=== PATIENT | male | born 1935 | race Caucasian/White ===

== ENCOUNTER 2018-05-08 03:47 | Emergency (ER) | payer MEDICARE, OTHER ==
[2018-05-08 03:56] VITALS: BP 166/61
[2018-05-08] MEDS ORDERED: OXYCODONE HCL IR 5 MG TABLET PO ONE (04:52)
[2018-05-08] MEDS ORDERED: NORMAL SALINE 10 ML SDV (AFTER EACH USE) IV PRN (04:59)
[2018-05-08] MEDS ORDERED: ALTEPLASE INJ 2 MG VIAL (CATH CLEARANCE) IV ONE (05:14)
[2018-05-08] MEDS ORDERED: ALTEPLASE INJ 2 MG VIAL (CATH CLEARANCE) ONE (05:35)
--- NOTE | 2018-05-08 06:26 | ER Document Report ---
ED General - General Chief Complaint: Other Stated Complaint: PICC LINE ISSUE Time Seen by Provider: 05/08/18 06:19 TRAVEL OUTSIDE OF THE U[place]. IN LAST 30 DAYS: No - HPI Notes: [facility] with a clogged [facility] line. Patient receiving outpatient antibiotic therapy. Has no complaints - Related Data Allergies/Adverse Reactions: No Known Allergies Allergy (Unverified 05/08/18 04:52) Past Medical History - Social History Smoking Status: Unknown if Ever Smoked Chew tobacco use (# tins/day): No Frequency of alcohol use: None Drug Abuse: None Family History: None Patient has suicidal ideation: No Patient has homicidal ideation: No Renal/ Medical History: Denies: Hx Peritoneal Dialysis Review of Systems - Review of Systems Notes: REVIEW OF SYSTEMS: CONSTITUTIONAL: -fevers, -chills EENT: -eye pain, -difficulty swallowing, -nasal congestion CARDIOVASCULAR: -chest pain, -syncope. RESPIRATORY: -cough, -SOB GASTROINTESTINAL: -abdominal pain, -nausea, -vomiting, -diarrhea GENITOURINARY: -dysuria, -hematuria MUSCULOSKELETAL: -back pain, -neck pain SKIN: -rash or skin lesions. HEMATOLOGIC: -easy bruising or bleeding. LYMPHATIC: -swollen, enlarged glands. NEUROLOGICAL: -altered mental status or loss of consciousness, -headache, - neurologic symptoms PSYCHIATRIC: -anxiety, -depression. ALL OTHER SYSTEMS REVIEWED AND NEGATIVE. Physical Exam - Vital signs Vitals: Temp Pulse Resp BP Pulse Ox 98.8 F 90 16 166/61 H 95 05/08/18 03:53 05/08/18 03:53 05/08/18 03:53 05/08/18 03:53 05/08/18 03:53 - Notes Notes: PHYSICAL EXAMINATION: GENERAL: Well-appearing, well-nourished and in no acute distress. HEAD: Atraumatic, normocephalic. EYES: Pupils equal round and reactive to light, extraocular movements intact, sclera anicteric, conjunctiva are normal. ENT: nares patent, oropharynx clear without exudates. Moist mucous membranes. NECK: Normal range of motion, supple without lymphadenopathy LUNGS: Breath sounds clear to auscultation bilaterally and equal. No wheezes rales or rhonchi. HEART: Regular rate and rhythm without murmurs ABDOMEN: Soft, nontender, normoactive bowel sounds. No guarding, no rebound. No masses appreciated. EXTREMITIES: Normal range of motion, no pitting or edema. No cyanosis. NEUROLOGICAL: Cranial nerves grossly intact. Normal speech, normal gait. Normal sensory and motor exams. PSYCH: Normal mood, normal affect. SKIN: Warm, Dry, normal turgor, no rashes or lesions noted. Course - Re-evaluation Re-evalutation: 05/08/18 06:25 Elderly male presents with a clogged PICC line. Initial attempts to clear with heparin unsuccessful. Require alteplase. This is given to patient. PICC line and flushes appropriately no complaints Patient has a reassuring physical exam will discharge home. - Vital Signs Vital signs: Temp Pulse Resp BP Pulse Ox 98.8 F 90 16 166/61 H 95 05/08/18 03:53 05/08/18 03:53 05/08/18 03:53 05/08/18 03:53 05/08/18 03:53 Discharge - Discharge Clinical Impression: PICC (peripherally inserted central catheter) flush Condition: Good Disposition: HOME, SELF-CARE Referrals: HANSA FAJARDO MD [Primary Care Provider] - Follow up as needed
[2018-05-08] MEDS ORDERED: NORMAL SALINE 10 ML SDV (SCHEDULED) IV SCH (10:00)
== END 2018-05-08 08:52 | disposition home or self-care (01) ==
LOC: ER 03:47
DX: Z45.2 Encounter for adjustment and management of vascular access device (principal)
CPT/HCPCS: 36592; 99283; J2997; J3490; A9270; J1642

== ENCOUNTER 2018-05-27 05:03 | Emergency (ER) | payer MEDICARE, OTHER ==
[2018-05-27] MEDS ORDERED: FENTANYL CITRATE INJ/PF 100 MCG/2 ML AMPUL IV ONE (05:27)
--- NOTE | 2018-05-27 05:42 | ER Document Report ---
Doctor's Note Notes: 05/27/18 05:40 I performed a quick triage evaluation the patient. Patient is a pleasant 83- year-old male with a complicated history of right hip surgery. Initially had hip surgery replacement done at [facility] in July. After that he developed infection. He had a revision. He also developed a dislocation August. He had 2 more revisions in February and April. Last revision was May 04. He is currently on antibiotics with a PICC line. He also has a wound VAC over the right hip. He says his infection has been well controlled last 1-2 weeks. He has not had any recent fevers. On exam he does have a wound VAC in place over the right hip with just minimal surrounding erythema. Pelvis stable. Good distal pulses in the right foot. Patient does have a knee immobilizer to wear at home but was not wearing it tonight when this occurred. Patient received 75 mcg of fentanyl from the months. He still having some pain and therefore aborted more fentanyl and I have ordered an x-ray. Dictation of this chart was performed using voice recognition software; therefore, there may be some unintended grammatical errors. 05/27/18 05:42
--- NOTE | 2018-05-27 06:21 | ER Document Report ---
ED Hip Pain/Injury - General Chief Complaint: Hip Injury Stated Complaint: HIP PAIN Time Seen by Provider: 05/27/18 06:06 Notes: 83-year-old male presents to the emergency department complaining of right- sided hip pain. 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 The patient has a wound VAC and just had stitches out. Most recent replacement was March 20 at [facility]. Patient state he was doing fine but may have moved his leg wrong while he was in bed to get out of bed and felt a pop. Complains of severe aching pain on the right side of his hip. Worse with movement. Denies any head or neck injuries. Denies chest pain denies abdominal pain. TRAVEL OUTSIDE OF THE [place] IN LAST 30 DAYS: No - HPI Patient complains to provider of: Injury, Hip Occurred: Just prior to arrival Where: Home Onset/Duration: Sudden Quality of pain: Achy Severity: Severe Context: No trauma Symptoms prior to fall: None Symptoms since fall: denies: Dizzy/light-headed, Fever/chills/sweats, Headache, Rapid heart rate, Seizure, Vomiting/diarrhea - Related Data Allergies/Adverse Reactions: No Known Allergies Allergy (Unverified 05/08/18 04:52) Past Medical History - Social History Smoking Status: Former Smoker Chew tobacco use (# tins/day): Yes Frequency of alcohol use: None Drug Abuse: None Family History: None Patient has suicidal ideation: No Patient has homicidal ideation: No - Past Medical History Cardiac Medical History: Reports: Hx Heart Attack, Hx Hypertension Endocrine Medical History: Reports: Hx Diabetes Mellitus Type 2 Renal/ Medical History: Denies: Hx Peritoneal Dialysis Past Surgical History: Reports: Hx Cardiac Catheterization, Hx Cardiac Surgery - bipass, Hx Orthopedic Surgery - R hip Review of Systems - Review of Systems Constitutional: denies: Chills, Fever Cardiovascular: denies: Chest pain, Dizziness Respiratory: denies: Short of breath Musculoskeletal: Joint pain. denies: Muscle pain, Leg swelling, Ankle swelling Skin: denies: Rash -: Yes All other systems reviewed and negative Physical Exam - Vital signs Vitals: Temp Pulse Ox 97.9 F 92 05/27/18 05:23 05/27/18 05:23 - Notes Notes: GENERAL_APPEARANCE: well_nourished, alert, cooperative, appears uncomfortable. VITALS: reviewed, see vital signs table. HEAD: no_swelling\tenderness on the head. EYES: PERRL, EOMI, conjunctiva_clear. NOSE: no_nasal_discharge. MOUTH: (-)decreased moisture. NECK: supple, no_neck_tenderness, (-)thyromegaly. BACK: no_back_tenderness. CHEST_WALL: no_chest_tenderness. LUNGS: no_wheezing, no_rales, no_rhonchi, (-)accessory muscle use, good air exchange bilateral. EXTREMITIES: Shortening of the right hip is noted with rotation inward. There are strong dorsalis pedis posterior tibial pulses. There is a wound VAC in place over incision on the right hip. There is no change in temperature compared to the contralateral leg. No calf pain. No swelling no open wounds. SKIN: warm, dry, good_color, no_rash. MENTAL_STATUS: speech_clear, oriented_X_3, normal_affect, responds_ appropriately to questions. NEURO: Neg Motor or Sensory Deficits on exam, CN 2-12 intact, DTR 2+ symmetric x 4, No cerbellar signs Course - Re-evaluation Re-evalutation: 05/27/18 06:19 Patient arrives with likely hip dislocation will get an x-ray to confirm the patient sees Dr. Waldrop - ortho at [facility]. If the hip is indeed dislocated I will contact [place] since it is still what I consider fresh preop. There is still an open wound some stitches were just removed last week. 05/27/18 09:23 Hip Was reduced. This is not the patient's first hip dislocation is from air and has all the hardware needed I will order a knee immobilizer to get him home. - Vital Signs Vital signs: Temp Pulse Resp BP Pulse Ox 97.9 F 78 14 129/50 H 93 05/27/18 05:25 05/27/18 09:01 05/27/18 09:06 05/27/18 09:06 05/27/18 09:06 - EKG Interpretation by Me EKG shows normal: Sinus rhythm Rate: Normal Rhythm: NSR [place]/QRS: LBBB When compared to previous EKG there are: No significant change Additional EKG results interpreted by me: 05/27/18 07:37 Occasional in and out demand pacing Procedures - Joint Reduction/Fracture Care Right Hip Consent obtained: Yes Conscious sedation: Yes Pre-procedure NV exam: Yes Post-procedure NV exam: Yes - No deficits noted Post-reduction x-ray: Joint reduced Reduction attempts: 1 Complications: No Discharge - Discharge Clinical Impression: Hip dislocation, right Qualifiers: Encounter type: initial encounter Qualified Code(s): S73.004A - Unspecified dislocation of right hip, initial encounter Condition: Good Disposition: HOME, SELF-CARE Instructions: Dislocated Artificial Hip ([facility]) Referrals: HANSA FAJARDO MD [Primary Care Provider] - Follow up as needed
[2018-05-27] MEDS ORDERED: HYDROMORPHONE HCL INJ/PF 2 MG/ML AMPULE IV ONE (06:47)
--- NOTE | 2018-05-27 06:59 | RADIOLOGY REPORT (SQ) ---
EXAM DESCRIPTION: XR HIP 2 OR MORE VIEWS COMPLETED DATE/TME: 05/27/2018 05:27 CLINICAL HISTORY: 83 years, Male, hip dislocation COMPARISON: None. FINDINGS: Single view of the pelvis and crosstable lateral view of the right hip. Right total hip arthroplasty with superior posterior dislocation of the right hip prosthesis. Osteopenia. Severe degenerative change of the left hip. No acute fractures. Atherosclerotic vascular calcification. IMPRESSION: Superior posterior dislocation of the right total hip arthroplasty. 2010 [employer]- All Rights Reserved
[2018-05-27] MEDS ORDERED: PROPOFOL INJ 200 MG/20 ML VIAL IV ONE (08:19)
--- NOTE | 2018-05-27 09:06 | EKG REPORT ---
SEVERITY:- ABNORMAL ECG - PROBABLE SINUS RHYTHM, REC REPEAT EKG FIRST DEGREE AV BLOCK LEFT BUNDLE BRANCH BLOCK : Confirmed by: Amena Lyon 27-May-2018 09:05:32
--- NOTE | 2018-05-27 09:15 | RADIOLOGY REPORT (SQ) ---
EXAM DESCRIPTION: PELVIS AP COMPLETED DATE/TIME: 05/27/2018 8:52 am REASON FOR STUDY: POST REDUCTION COMPARISON: Earlier same day. NUMBER OF VIEWS: One view TECHNIQUE: AP Pelvis LIMITATIONS: None. FINDINGS: Right hip prosthesis femoral head component overlies acetabular component. IMPRESSION: Successful closed reduction. TECHNICAL DOCUMENTATION: JOB ID: [id number] [place]- All Rights Reserved Reading location - IP/workstation name: [email or web address]
[2018-05-27 09:42] VITALS: BP 174/140
== END 2018-05-27 09:42 | disposition home or self-care (01) ==
LOC: ER 05:03
DX: M24.451 Recurrent dislocation, right hip (principal); Z98.890 Other specified postprocedural states; E11.9 Type 2 diabetes mellitus without complications; I10 Essential (primary) hypertension; I44.7 Left bundle-branch block, unspecified; Z95.1 Presence of aortocoronary bypass graft
CPT/HCPCS: 93005; 99283; 96374; 96375; 73502; 72170; 93010; 27265; L1830; J3010; J1170; J2704

== ENCOUNTER 2018-06-16 05:13 | Emergency (ER) | payer MEDICARE, OTHER ==
--- NOTE | 2018-06-16 06:43 | RADIOLOGY REPORT (SQ) ---
EXAM DESCRIPTION: XR HIP 2 OR MORE VIEWS COMPLETED DATE/TME: 06/16/2018 05:53 CLINICAL HISTORY: 83 years, Male, Possible dislocation COMPARISON: None. NUMBER OF VIEWS: 2 LIMITATIONS: None. FINDINGS: Complete superolateral dislocation at a right total hip arthroplasty site. Lucency surrounds a longstem component of the right femur may indicate loosening or intramedullary fracture. Atherosclerosis. Moderate deformity of the left femoral head. 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 Stable-recurrent appearance compared with prior exam from May 27, 2018. IMPRESSION: Complete superolateral dislocation at a right total hip arthroplasty site. Stable-recurrent appearance compared with prior exam from May 27, 2018.
[2018-06-16] MEDS ORDERED: NORMAL SALINE 1000 ML 1,000 ML IV ONE (06:54)
[2018-06-16] MEDS ORDERED: MORPHINE SULFATE 10 MG/ML INJ IV ONE (06:54)
[2018-06-16] MEDS ORDERED: ONDANSETRON HCL INJ/PF 4 MG/2 ML SDV IV ONE (06:54)
[2018-06-16] MEDS ORDERED: PROPOFOL INJ 200 MG/20 ML VIAL IV ONE (07:29)
[2018-06-16 08:51] VITALS: BP 146/66
--- NOTE | 2018-06-16 09:01 | RADIOLOGY REPORT (SQ) ---
EXAM DESCRIPTION: HIP RIGHT AP/LATERAL COMPLETED DATE/TIME: 06/16/2018 8:42 am REASON FOR STUDY: post reduction COMPARISON: 06/16/2018 NUMBER OF VIEWS: Two views. TECHNIQUE: AP pelvis and additional cross-table lateral view of the right hip. LIMITATIONS: None. FINDINGS: MINERALIZATION: Osteopenia. RIGHT HIP: Total right hip arthroplasty. Persistent lucency surrounds the long stem femoral componen t. On the 1st AP pelvis view there is unchanged superolateral dislocation of the right hip. At whic h time, the ER physician re-attempted reduction (this clinical information was provided by the x-ray tech). Subsequent AP and cross-table lateral views were obtained demonstrating anatomic alignment o f the right hip arthroplasty. LEFT HIP: Severe left hip joint space narrowing subchondral sclerosis and flattening of the left femo ral head. PUBIS AND ISCHIUM: No fracture. PELVIS: No fracture. SACRUM: No fracture or dislocation. No worrisome bone lesions. LOWER LUMBAR SPINE: No fracture or dislocation. No worrisome bone lesions. 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 SOFT TISSUES: Extensive vascular calcifications. OTHER: No other significant finding. IMPRESSION: 1. Initial AP radiographs of the pelvis shows unchanged superolateral dislocation right hip. The sub sequent 2 radiographs of the pelvis and right hip demonstrate anatomic alignment of the right hip. 2. Persistent lucency surrounding the long-stem component of the arthroplasty which may indicate hard royal loosening. 3. Severe left hip osteoarthrosis. TECHNICAL DOCUMENTATION: JOB ID: [id number] [employer]- All Rights Reserved Reading location - IP/workstation name: [email or web address]
--- NOTE | 2018-06-16 09:25 | ER Document Report ---
ED General - General Chief Complaint: Hip Injury Stated Complaint: HIP PAIN Time Seen by Provider: 06/16/18 06:14 TRAVEL OUTSIDE OF THE [place] IN LAST 30 DAYS: No - HPI Patient complains to provider of: Right hip pain Notes: Patient coming in for right hip pain. Patient has a history of hip replacement with multiple dislocations in the past and multiple vitamins. Patient states he was last operated on for months prior to his visit here to the ER. Patient states he had his Sunday night and was trying to move around in bed when he felt a pop and dislocation of the hip. Patient denies any falls denies any other trauma. Patient states he is been sedated in the past propofol and done quite well. Last p.o. intake was last night at dinner around 5:00 according to the patient. Patient has been n.p.o. since that time. Resting comfortably upon my evaluation. - Related Data Allergies/Adverse Reactions: No Known Allergies Allergy (Unverified 05/08/18 04:52) Past Medical History - Social History Smoking Status: Former Smoker Chew tobacco use (# tins/day): Yes Frequency of alcohol use: Rare Drug Abuse: None Family History: None Patient has suicidal ideation: No Patient has homicidal ideation: No - Past Medical History Cardiac Medical History: Reports: Hx Heart Attack, Hx Hypertension Endocrine Medical History: Reports: Hx Diabetes Mellitus Type 2 Renal/ Medical History: Denies: Hx Peritoneal Dialysis Past Surgical History: Reports: Hx Cardiac Catheterization, Hx Cardiac Surgery - double bipass, Hx Orthopedic Surgery - R hip Review of Systems - Review of Systems Constitutional: No symptoms reported EENT: No symptoms reported Cardiovascular: No symptoms reported Respiratory: No symptoms reported Gastrointestinal: No symptoms reported Genitourinary: No symptoms reported Male Genitourinary: No symptoms reported Musculoskeletal: Other - Right hip pain Skin: No symptoms reported Hematologic/Lymphatic: No symptoms reported Neurological/Psychological: No symptoms reported -: Yes All other systems reviewed and negative Physical Exam - Vital signs Vitals: Temp Pulse Resp BP Pulse Ox 97.7 F 87 16 169/70 H 96 06/16/18 05:18 06/16/18 05:18 06/16/18 05:18 06/16/18 05:18 06/16/18 05:18 Interpretation: Normal - General General appearance: Appears well, Alert - HEENT Head: Normocephalic, Atraumatic Eyes: Normal Pupils: PERRL - Respiratory Respiratory status: No respiratory distress Chest status: Nontender Breath sounds: Normal Chest palpation: Normal - Cardiovascular Rhythm: Regular Heart sounds: Normal auscultation Murmur: No - Abdominal Inspection: Normal Distension: No distension Bowel sounds: Normal Tenderness: Nontender Organomegaly: No organomegaly - Back Back: Normal, Nontender - Extremities General upper extremity: Normal inspection, Nontender, Normal color, Normal ROM , Normal temperature General lower extremity: Normal color, Normal temperature, Other. No: Normal inspection - Patient with a obvious deformity of the right hip pain palpation shortening of the right leg with internal rotation. - Neurological Neuro grossly intact: Yes Cognition: Normal Orientation: AAOx4 [place] Coma Scale Eye Opening: Spontaneous [place] Coma Scale Verbal: Oriented Eddie Coma Scale Motor: Obeys Commands [place] Coma Scale Total: 15 Speech: Normal Motor strength normal: LUE, RUE, LLE, RLE Sensory: Normal - Psychological Associated symptoms: Normal affect, Normal mood - Skin Skin Temperature: Warm Skin Moisture: Dry Skin Color: Normal Course - Re-evaluation Re-evalutation: 06/16/18 14:30 Peripheral was used for sedation. Consent was signed. X-ray confirmed placement confirmatory x-ray does show some loose bodies around the stem did call [facility] discussed with her on-call doctor again recommends treatment at this time at the reduction of the hip with an knee immobilizer and continued to use a wedge at home. Encouraged patient to follow-up with his orthopedic doctor on Sunday. Patient states understanding and will be discharged home. - Vital Signs Vital signs: Temp Pulse Resp BP Pulse Ox 97.7 F 83 18 146/66 H 97 06/16/18 05:18 06/16/18 08:40 06/16/18 08:46 06/16/18 08:46 06/16/18 08:46 Procedures - Conscious Sedation Conscious sedation Time started: 08:07 Time completed: 08:20 Consent obtained: Yes Indication: Hip dislocation Last meal: >12 hours Prior complications: Procedural sedation Pt with a mild systemic disease.: P2. - ASA Classification. Airway Evaluation: Normal anatomy Mallampati Classification: Class 2 Used during procedure: Suction available, IV access obtained, Pulse ox on pt., library consultant on pt. Medications administered: Diprivan Reversal agents: None I personally performed/intraservice time: Sedation, Procedure, 30 min or less Complications: No - Immobilization Right Hip Immobilizer type: Knee immobilizer Performed by: PCT Post-Proc Neuro Vasc Exam: Normal Alignment checked and good: Yes - Joint Reduction/Fracture Care Right Hip Consent obtained: Yes Conscious sedation: Yes Pre-procedure NV exam: Yes Manipulation comment: Traction Post-procedure NV exam: Yes Post-reduction x-ray: Joint reduced Reduction attempts: 1 Complications: No Discharge - Discharge Clinical Impression: Hip dislocation, right Qualifiers: Encounter type: initial encounter Qualified Code(s): S73.004A - Unspecified dislocation of right hip, initial encounter Condition: Good Disposition: HOME, SELF-CARE Instructions: Dislocated Artificial Hip ([facility]) Additional Instructions: Please call your orthopedic physician tomorrow to schedule follow-up appointment to return to the ER symptoms worsen. Please continue to use her wedge at home and the knee immobilizer. Referrals: HANSA FAJARDO MD [Primary Care Provider] - Follow up as needed
== END 2018-06-16 09:30 | disposition home or self-care (01) ==
LOC: ER 05:13
PROC: 0SS9XZZ Reposition Right Hip Joint, External Approach (ICD-10-PCS; principal; 2018-06-16)
DX: T84.020A Dislocation of internal right hip prosthesis, initial encounter (principal); X58.XXXA Exposure to other specified factors, initial encounter; Y92.003 Bedroom of unspecified non-institutional (private) residence as the place of occurrence of the external cause; I25.2 Old myocardial infarction; I10 Essential (primary) hypertension; E11.9 Type 2 diabetes mellitus without complications; Z95.1 Presence of aortocoronary bypass graft
CPT/HCPCS: 99284; 99152; 96374; 73502; 27265; L1830; J2270; J2405; J7030; J2704

== ENCOUNTER 2018-07-06 06:15 | Emergency (ER) | payer MEDICARE, OTHER ==
--- NOTE | 2018-07-06 07:19 | ER Document Report ---
ED General - General Mode of Arrival: Ambulatory Information source: Patient TRAVEL OUTSIDE OF THE [place] IN LAST 30 DAYS: No <CAMPBELL TEJEDA - Last Filed: 07/06/18 10:08> <ANTONINA AGUILAR - Last Filed: 07/06/18 10:12> - General Chief Complaint: Hip Pain Stated Complaint: HIP PAIN Time Seen by Provider: 07/06/18 06:40 Notes: Patient is an 83 year old male with Agent Early disease, diabetes, a pacemaker , Parkinson's disease and a history of ID (1999) presents to the emergency department complaining of right hip pain and possible dislocation onset last night. Patient states he was asleep when he believes he rolled over and dislocated his right hip. Family at bedside states the patient has dislocated his hip 5x within last 6 months further mentioning he had 3 right hip surgeries since 2016. Family also reports bleeding from the right hip. Patient mentions being recently on Plavix and Aspirin but was instructed to discontinue use yesterday due to the continuous bleeding from right hip. (CAMPBELL TEJEDA) - Related Data Allergies/Adverse Reactions: No Known Allergies Allergy (Unverified 05/08/18 04:52) Past Medical History - General Information source: Patient - Social History Smoking Status: Never Smoker Family History: None Patient has suicidal ideation: No Patient has homicidal ideation: No - Past Medical History Cardiac Medical History: Reports: Hx Heart Attack, Hx Hypertension Endocrine Medical History: Reports: Hx Diabetes Mellitus Type 2 Past Surgical History: Reports: Hx Cardiac Catheterization, Hx Cardiac Surgery - double bipass, Hx Orthopedic Surgery - R hip <CAMPBELL TEJEDA - Last Filed: 07/06/18 10:08> Review of Systems - Review of Systems Constitutional: No symptoms reported EENT: No symptoms reported Cardiovascular: No symptoms reported Respiratory: No symptoms reported Gastrointestinal: No symptoms reported Genitourinary: No symptoms reported Male Genitourinary: No symptoms reported Musculoskeletal: See HPI Skin: No symptoms reported Hematologic/Lymphatic: See HPI Neurological/Psychological: No symptoms reported -: Yes All other systems reviewed and negative <CAMPBELL TEJEDA - Last Filed: 07/06/18 10:08> Physical Exam <CAMPBELL TEJEDA - Last Filed: 07/06/18 10:08> <ANTONINA AGUILAR - Last Filed: 07/06/18 10:12> - Vital signs Vitals: Temp Pulse Resp BP Pulse Ox 97.3 F 64 18 131/57 H 99 07/06/18 06:21 07/06/18 06:21 07/06/18 06:21 07/06/18 06:21 07/06/18 06:21 - Notes Notes: GENERAL: Alert, interacts well. No acute distress. HEAD: Normocephalic, atraumatic. EYES: Pupils equal, round, and reactive to light. Extraocular movements intact. ENT: Oral mucosa moist, tongue midline. NECK: Full range of motion. Supple. Trachea midline. LUNGS: Clear to auscultation bilaterally, no wheezes, rales, or rhonchi. No respiratory distress. HEART: Regular rate and rhythm. No murmurs, gallops, or rubs. ABDOMEN: Soft, non-tender. Non-distended. Bowel sounds present in all 4 quadrants. EXTREMITIES: Moves all 4 extremities spontaneously. Extensive incision at the right hip, well healed except for a 2 mm area that has a small amount of bloody discharge, no surrounding erythema. Increased fullness around the right hip joint. Right foot internally rotated. Radial and dorsalis pedis pulses 2/4 bilaterally. No cyanosis. NEUROLOGICAL: Alert and oriented x3. Normal speech. PSYCH: Normal affect, normal mood. SKIN: Warm, dry, normal turgor. No rashes or lesions noted. (CAMPBELL TEJEDA) Course <CAMPBELL TEJEDA - Last Filed: 07/06/18 10:08> <ANTONINA AGUILAR - Last Filed: 07/06/18 10:12> - Re-evaluation Re-evalutation: 07/06/18 09:04 X-ray shows posterior dislocation of the right hip. Patient was given propofol 62 mg, was easily reduced using Captbrooklynn Mik technique, no complications, postreduction x-ray shows good alignment of hip prosthesis and no evidence of acute fracture. Reminded to use knee immobilizer and use wedge. Discharged home. (ANTONINA AGUILAR) - Vital Signs Vital signs: Temp Pulse Resp BP Pulse Ox 97.3 F 74 11 L 144/57 H 99 07/06/18 06:21 07/06/18 09:05 07/06/18 09:21 07/06/18 09:21 07/06/18 09:21 - EKG Interpretation by Me Additional EKG results interpreted by me: 07/06/18 09:06 EKG was ordered prior to reduction and shows a rate of 69, atrially sensed ventricularly paced, does not meet STEMI criteria per my interpretation. (ANTONINA AGUILAR) Procedures - Conscious Sedation Conscious sedation Time started: 08:37 Time completed: 08:56 Consent obtained: Yes Airway Evaluation: Normal anatomy Reversal agents: None I personally performed/intraservice time: Sedation Complications: No - Joint Reduction/Fracture Care Right Hip Time completed: 08:41 Consent obtained: Yes Conscious sedation: Yes Pre-procedure NV exam: Yes Post-procedure NV exam: Yes Post-reduction x-ray: Joint reduced Reduction attempts: 1 Complications: No <CAMPBELL TEJEDA - Last Filed: 07/06/18 10:08> - Conscious Sedation Conscious sedation Indication: right hip dislocation Last meal: 07/05/18 Pt with a mild systemic disease.: P2. - ASA Classification. Mallampati Classification: Class 2 Used during procedure: Suction available, IV access obtained, Pulse ox on pt., science job titles on pt. Medications administered: Diprivan I personally performed/intraservice time: Procedure, 30 min or less - Joint Reduction/Fracture Care Right Hip Manipulation comment: captain ingram technique Post-reduction x-ray: No fracture seen <ANTONINA AGUILAR - Last Filed: 07/06/18 10:12> Discharge <CAMPBELL TEJEDA - Last Filed: 07/06/18 10:08> <ANTONINA AGUILAR - Last Filed: 07/06/18 10:12> - Discharge Clinical Impression: Recurrent dislocation, right hip Condition: Stable Disposition: HOME, SELF-CARE Additional Instructions: You must wear your knee immobilizer anytime that you sleep. It does not matter whether you are sleeping in your recliner or in your bed you must wear the knee immobilizer. When you are sleeping your bed please use your wedge as well. Please follow-up with your orthopedic surgeon as an outpatient regarding these recurrent knee dislocations. Referrals: HANSA FAJARDO MD [Primary Care Provider] - Follow up as needed Scribe Attestation: 07/06/18 10:12 I personally performed the services described in the documentation, reviewed and edited the documentation which was dictated to the scribe in my presence, and it accurately records my words and actions. (ANTONINA AGUILAR) Scribe Documentation - Scribe Written by Pablito:: Pablito Summers, 07/06/2018 07:56 acting as scribe for :: Stephy <CAMPBELL TEJEDA - Last Filed: 07/06/18 10:08>
[2018-07-06] MEDS ORDERED: HYDROMORPHONE HCL INJ/PF 2 MG/ML AMPULE IV ONE (07:21)
[2018-07-06] MEDS ORDERED: PROPOFOL INJ 200 MG/20 ML VIAL IV ONE (07:29)
--- NOTE | 2018-07-06 08:36 | RADIOLOGY REPORT (SQ) ---
EXAM DESCRIPTION: HIP RIGHT AP/LATERAL COMPLETED DATE/TIME: 07/06/2018 8:16 am REASON FOR STUDY: possible dislocation COMPARISON: 06/16/2018. NUMBER OF VIEWS: Two views. TECHNIQUE: AP pelvis and additional frog-leg view of the right hip. LIMITATIONS: None. FINDINGS: There is evidence of dislocation of the femoral component of a right hip arthroplasty post erior superiorly. The acetabular component is seated properly. Lumbar spondylosis is noted. Flatte jg of the left femoral head with subchondral lucency and sclerosis consistent with AVN. Narrowing of the left hip joint consistent with degenerative arthritis the left hip. Vascular calcification ab dominal aorta, iliac ,and femoral vessels with evidence of right femoral stent and common iliac stent s. There is dilatation of the lower abdominal aorta above the iliac bifurcation measuring 3 point 5 cm. Degenerative changes of the SI joints. Soft tissue density in pelvis consistent with urinary bl adder. IMPRESSION: 1. Evidence of posterosuperior dislocation femoral component of right hip arthroplasty. 2. 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 3 . Atherosclerotic dilatation infrarenal abdominal aorta. Vascular stents right common femoral and both common iliac arteries. TECHNICAL DOCUMENTATION: JOB ID: [id number] 2010 [employer]- All Rights Reserved Reading location - IP/workstation name: [email or web address]
[2018-07-06 09:27] VITALS: BP 144/57
--- NOTE | 2018-07-06 09:49 | RADIOLOGY REPORT (SQ) ---
EXAM DESCRIPTION: PELVIS AP COMPLETED DATE/TIME: 07/06/2018 8:58 am REASON FOR STUDY: post reduction COMPARISON: 07/06/2018. NUMBER OF VIEWS: One view TECHNIQUE: AP Pelvis LIMITATIONS: None. FINDINGS: Interval reduction of dislocation of femoral component of right hip prosthesis. Otherwise , no significant interval change. IMPRESSION: Interval relocation of femoral component of right hip arthroplasty. TECHNICAL DOCUMENTATION: JOB ID: [id number] [id number] 2010 [employer]- All Rights Reserved Reading location - IP/workstation name: [email or web address]
--- NOTE | 2018-07-06 10:10 | EKG REPORT ---
SEVERITY:- ABNORMAL ECG - ATRIAL-SENSED VENTRICULAR-PACED RHYTHM : Confirmed by: Ned Vazquez MD 06-Jul-2018 10:10:02
== END 2018-07-06 10:01 | disposition home or self-care (01) ==
LOC: ER 06:15
PROC: 0SS9XZZ Reposition Right Hip Joint, External Approach (ICD-10-PCS; principal; 2018-07-06)
DX: M24.451 Recurrent dislocation, right hip (principal); M25.551 Pain in right hip; E11.9 Type 2 diabetes mellitus without complications; G20 Parkinson's disease; Z95.0 Presence of cardiac pacemaker; Z79.02 Long term (current) use of antithrombotics/antiplatelets; Z79.82 Long term (current) use of aspirin; I10 Essential (primary) hypertension
CPT/HCPCS: 93005; 99284; 99152; 96374; 73502; 72170; 93010; 27257; J1170; J2704

== ENCOUNTER 2018-07-20 22:15 | Emergency (ER) | payer MEDICARE, OTHER ==
[2018-07-20] MEDS ORDERED: FENTANYL CITRATE INJ/PF 100 MCG/2 ML AMPUL IV ONE (23:11)
--- NOTE | 2018-07-20 23:15 | ER Document Report ---
ED Medical Screen (RME) - General Chief Complaint: Hip Pain Stated Complaint: POSSIBLE HIP DISLOCATION Time Seen by Provider: 07/20/18 23:11 Notes: 83-year-old male with chief complaint of possible right hip dislocation, he has had right hip arthroplasty, he states he has dislocated 4 times in the past. Unable to bear weight. TRAVEL OUTSIDE OF THE [place] IN LAST 30 DAYS: No - Related Data Allergies/Adverse Reactions: No Known Allergies Allergy (Unverified 05/08/18 04:52) Past Medical History - Past Medical History Cardiac Medical History: Reports: Hx Heart Attack, Hx Hypertension Endocrine Medical History: Reports: Hx Diabetes Mellitus Type 2 Renal/ Medical History: Denies: Hx Peritoneal Dialysis Past Surgical History: Reports: Hx Cardiac Catheterization, Hx Cardiac Surgery - double bipass, Hx Orthopedic Surgery - R hip Physical Exam - Vital signs Vitals: Temp Pulse Resp BP Pulse Ox 97.4 F 74 17 112/45 L 95 07/20/18 22:20 07/20/18 22:20 07/20/18 22:20 07/20/18 22:20 07/20/18 22:20 - Extremities General lower extremity: Other - Unable to bear weight, slight internal rotation , otherwise unremarkable Course - Vital Signs Vital signs: Temp Pulse Resp BP Pulse Ox 97.4 F 74 17 112/45 L 95 07/20/18 22:20 07/20/18 22:20 07/20/18 22:20 07/20/18 22:20 07/20/18 22:20 Doctor's Discharge - Discharge Referrals: HANSA FAJARDO MD [Primary Care Provider] - Follow up as needed
--- NOTE | 2018-07-20 23:41 | ER Document Report ---
ED General - General Chief Complaint: Hip Pain Stated Complaint: POSSIBLE HIP DISLOCATION Time Seen by Provider: 07/20/18 23:11 Mode of Arrival: Wheelchair Information source: Patient Notes: 83-year-old male with coronary artery disease, type 2 diabetes, hypertension, history of frequent right hip dislocations presents via private vehicle with concern for right hip dislocation. Patient states that he was standing in the bathroom when he turned to his right but his foot stayed planted. He heard a pop and grabbed onto the sink avoiding falling. Patient has had this happen multiple times in the last 2 months. He has been seen by his orthopedic surgeon recently. TRAVEL OUTSIDE OF THE [place] IN LAST 30 DAYS: No - HPI Onset: Just prior to arrival Onset/Duration: Sudden Quality of pain: Achy Severity: Moderate Associated symptoms: None Exacerbated by: Movement Relieved by: Remaining still Similar symptoms previously: Yes Recently seen / treated by doctor: Yes - July 06, 2018 [facility] emergency department - Related Data Allergies/Adverse Reactions: No Known Allergies Allergy (Unverified 05/08/18 04:52) Past Medical History - General Information source: Patient, [facility] Records - Social History Smoking Status: Former Smoker Frequency of alcohol use: None Drug Abuse: None Lives with: Family Family History: None, Reviewed & Not Pertinent Patient has suicidal ideation: No Patient has homicidal ideation: No - Past Medical History Cardiac Medical History: Reports: Hx Heart Attack, Hx Hypertension Endocrine Medical History: Reports: Hx Diabetes Mellitus Type 2 Renal/ Medical History: Denies: Hx Peritoneal Dialysis Past Surgical History: Reports: Hx Cardiac Catheterization, Hx Cardiac Surgery - double bipass, Hx Orthopedic Surgery - R hip Review of Systems - Review of Systems Notes: REVIEW OF SYSTEMS: CONSTITUTIONAL : Denies fever, chills, or sweats. Denies recent illness. Denies weight loss, recent hospitalizations. EENT: Denies visual changes, eye pain. Denies sore throat, oral lesions, difficulty swallowing. CARDIOVASCULAR: Denies chest pain. Denies palpitations. Denies lower extremity edema. RESPIRATORY: Denies cough. Denies shortness of breath, wheezing. GASTROINTESTINAL: Denies abdominal pain or distention. Denies nausea, vomiting , or diarrhea. Denies blood in vomitus, stools, or per rectum. Denies black, tarry stools. Denies constipation. GENITOURINARY: Denies difficulty urinating, painful urination, frequency, blood in urine, testicular pain or penile discharge. MUSCULOSKELETAL: Denies back or neck pain or stiffness. SKIN: Denies rash, lesions or sores. HEMATOLOGIC : Denies easy bruising or bleeding. LYMPHATIC: Denies swollen glands. NEUROLOGICAL: Denies confusion or altered mental status. Denies loss of consciousness. Denies dizziness or lightheadedness. Denies headache. Denies weakness or paralysis. Denies problems difficulty with ambulation, slurred speech. Denies sensory loss, numbness, or tingling. Denies seizures. PSYCHIATRIC: Denies anxiety or stress. Denies depression, suicidal ideation, or Physical Exam - Vital signs Vitals: Temp Pulse Resp BP Pulse Ox 97.4 F 74 17 112/45 L 95 07/20/18 22:20 07/20/18 22:20 07/20/18 22:20 07/20/18 22:20 07/20/18 22:20 Interpretation: No: Febrile - Notes Notes: PHYSICAL EXAMINATION: GENERAL: Well-appearing, well-nourished and in no acute distress. HEAD: Atraumatic, normocephalic. EYES: Pupils equal round and reactive to light, extraocular movements intact, sclera anicteric, conjunctiva are normal. ENT: Nares patent, oropharynx clear without exudates. Moist mucous membranes. NECK: Normal range of motion, supple without lymphadenopathy LUNGS: Breath sounds clear to auscultation bilaterally and equal. No wheezes rales or rhonchi. HEART: Regular rate and rhythm without murmurs. Pacemaker left upper chest. ABDOMEN: Soft, nontender, nondistended abdomen. No guarding, no rebound. No masses appreciated. Musculoskeletal: Limited range of motion of the right hip. Leg length discrepancies with right leg longer than left. PT and DP pulse intact. Sensation intact. NEUROLOGICAL: Cranial nerves grossly intact. Normal speech Normal sensory, motor exams PSYCH: Normal mood, normal affect. SKIN: Warm, Dry, normal turgor, no rashes or lesions noted. Course - Re-evaluation Re-evalutation: Hip/Pelvis X-Ray 07/20/18 00:00 IMPRESSION: Posterior dislocation of the right femoral prosthesis. Pelvis X-Ray 07/21/18 00:28 IMPRESSION: 1. Post reduction film demonstrates right total hip arthroplasty in appropriate position. 2010 [employer]- All Rights Reserved 07/22/18 04:32 83-year-old male presents with complaint of right hip pain and possible dislocation. Patient has been seen several times previous for similar symptoms. He denies any fall or injury but states that he went to turn to his right and his right foot stayed planted on the floor. He heard a pop and caught himself on the sink. Vital signs stable upon arrival. X-ray of the pelvis were obtained and showed a right posterior dislocation. Procedural sedation was performed using propofol and patient's hip was successfully reduced using the Captain Houser's technique. Patient was placed and knee immobilizer and advised to follow-up with his orthopedic surgeon for recurring hip dislocations. Family is at the bedside and is comfortable with taking the patient home via private vehicle. Patient provided the opportunity to ask questions, and express concerns. Discharge instructions discussed. Patient is agreeable with discharge home. Return indications explained and discussed with the patient who displays understanding. Patient encouraged to return to the emergency department immediately with any concerns. Results were discussed with the patient at this point, after careful consideration I feel that that patient can be discharged from the emergency department, the patient was educated treatments and reasons to return to the emergency department based on their presumed diagnosis as noted above, they were advised to followup with a primary care physician in 2-3 days. Patient was agreeable to plan of care. Dictation on this chart was performed using voice recognition software and may result in unintended grammatical, spelling, syntax or errors. 07/22/18 04:33 - Vital Signs Vital signs: Temp Pulse Resp BP Pulse Ox 97.4 F 68 18 161/64 H 98 07/20/18 22:20 07/21/18 01:11 07/21/18 03:10 07/21/18 03:10 07/21/18 03:10 - Diagnostic Test Radiology reviewed: Image reviewed, Reports reviewed Procedures - Conscious Sedation Conscious sedation Time started: 23:54 Time completed: 00:45 Consent obtained: Yes Indication: Posterior hip dislocation Prior complications: Procedural sedation Pt with a mild systemic disease.: P2. - ASA Classification. Airway Evaluation: Normal anatomy Mallampati Classification: Class 3 Used during procedure: Suction available, IV access obtained, Pulse ox on pt., child monitor on pt. Medications administered: Other - Propofol Reversal agents: None I personally performed/intraservice time: Procedure, 31-45 min Complications: No - Joint Reduction/Fracture Care Right Hip Time completed: 00:40 Consent obtained: Yes Conscious sedation: Yes Pre-procedure NV exam: Yes Fracture: Closed Post-procedure NV exam: Yes Post-reduction x-ray: Joint reduced Reduction attempts: 2 Complications: No Discharge - Discharge Clinical Impression: Right hip pain Hip dislocation, right Qualifiers: Encounter type: subsequent encounter Qualified Code(s): S73.004D - Unspecified dislocation of right hip, subsequent encounter Hypertension Qualifiers: Hypertension type: unspecified Qualified Code(s): I10 - Essential (primary) hypertension Condition: Good Disposition: HOME, SELF-CARE Instructions: Dislocated Artificial Hip ([facility]), Dislocation ([facility]) Additional Instructions: Please follow-up with your orthopedic surgeon and make him aware of the numerous dislocations you have experienced in the last few weeks. Forms: Elevated Blood Pressure Referrals: HANSA FAJAROD MD [Primary Care Provider] - Follow up as needed
[2018-07-20] MEDS ORDERED: PROPOFOL INJ 200 MG/20 ML VIAL IV ONE (23:43)
--- NOTE | 2018-07-20 23:46 | RADIOLOGY REPORT (SQ) ---
EXAM DESCRIPTION: Right hip x-ray, two views . July 20, 2018 at 11:22 PM CLINICAL HISTORY: pain COMPARISON: July 06, 2018 FINDINGS: Frontal view of the pelvis and crosstable lateral view of the right hip was submitted. Frontal view marker was mislabeled. There is evidence of prior right hip arthroplasty. There is posterior dislocation of the femoral component. There is atherosclerosis. Degenerative changes of the lower lumbar spine and left hip noted. IMPRESSION: Posterior dislocation of the right femoral prosthesis.
[2018-07-20] MEDS ORDERED: NORMAL SALINE 1000 ML 1,000 ML IV ONE (23:47)
[2018-07-21] MEDS ORDERED: PROPOFOL INJ 200 MG/20 ML VIAL IV ONE ×2 (00:33→00:43)
--- NOTE | 2018-07-21 02:15 | RADIOLOGY REPORT (SQ) ---
EXAM DESCRIPTION: XR PELVIS 1-2 VIEWS COMPLETED DATE/TME: 07/21/2018 00:28 CLINICAL HISTORY: 83 years, Male, right hip arthroplasty dislocation. COMPARISON: None. FINDINGS: 2 sequential frontal radiographs of the pelvis obtained. On the first image there is superior dislocation of the femoral component of the right hip arthroplasty. On the second image there is been interval reduction of the dislocation with the femoral component now in appropriate radiographic position. Atherosclerotic vascular calcification. Osteopenia. Severe degenerative change of the left hip. IMPRESSION: 1. Post reduction film demonstrates right total hip arthroplasty in appropriate position. 2011 [employer]- All Rights Reserved
[2018-07-21 03:12] VITALS: BP 161/64
== END 2018-07-21 03:17 | disposition home or self-care (01) ==
LOC: ER 22:15
PROC: 0SS9XZZ Reposition Right Hip Joint, External Approach (ICD-10-PCS; principal; 2018-07-20)
DX: T84.020A Dislocation of internal right hip prosthesis, initial encounter (principal); E11.9 Type 2 diabetes mellitus without complications; I10 Essential (primary) hypertension; X50.1XXA Overexertion from prolonged static or awkward postures, initial encounter
CPT/HCPCS: 99284; 96361; 96374; 73502; 72170; 27265; L1830; J3010; J2704 ×2

== ENCOUNTER 2018-08-17 07:14 | Emergency (ER) | payer MEDICARE, OTHER ==
--- NOTE | 2018-08-17 08:08 | ER Document Report ---
ED General - General TRAVEL OUTSIDE OF THE [place] IN LAST 30 DAYS: No <ZEHRA COLLINS - Last Filed: 08/17/18 12:33> <KAMARI CHILEL - Last Filed: 08/17/18 13:14> - General Chief Complaint: Hip Pain Stated Complaint: HIP PAIN Time Seen by Provider: 08/17/18 07:57 - HPI Notes: Patient is an 83-year-old male with a history of coronary artery disease, type 2 diabetes, hypertension, history of frequent right hip dislocations who presents to the ED complaining of probable dislocation of the right hip that occurred this morning about 5 hours ago. Patient states that he was standing up to the bathroom when he turned and felt a pop in his hip. Patient has had multiple dislocations in the past and is scheduled to see a specialist next month. Denies drug allergies. No other concerns or complaints. Denies any headache, fever, URI, sore throat, chest pain, palpitations, syncope, cough, shortness of breath, wheeze, dyspnea, abdominal pain, nausea/vomiting/diarrhea, urinary retention, dysuria, hematuria, loss of control of b/b, numbness/tingling , saddle anesthesia, muscle paralysis/weakness, or rash. (ZEHRA COLLINS) - Related Data Allergies/Adverse Reactions: No Known Allergies Allergy (Unverified 05/08/18 04:52) Past Medical History - Social History Smoking Status: Never Smoker Family History: None, Reviewed & Not Pertinent - Past Medical History Cardiac Medical History: Reports: Hx Heart Attack, Hx Hypertension Endocrine Medical History: Reports: Hx Diabetes Mellitus Type 2 Renal/ Medical History: Denies: Hx Peritoneal Dialysis Past Surgical History: Reports: Hx Cardiac Catheterization, Hx Cardiac Surgery - double bipass, Hx Orthopedic Surgery - R hip <ZEHRA COLLINS - Last Filed: 08/17/18 12:33> Review of Systems - Review of Systems -: Yes All other systems reviewed and negative <ZEHRA COLLINS - Last Filed: 08/17/18 12:33> Physical Exam <ZEHRA COLLINS - Last Filed: 08/17/18 12:33> <KAMARI CHILEL - Last Filed: 08/17/18 13:14> - Vital signs Vitals: Temp Pulse Resp BP Pulse Ox 98.0 F 68 16 129/50 H 95 08/17/18 07:23 08/17/18 07:23 08/17/18 07:23 08/17/18 07:23 08/17/18 07:23 - Notes Notes: PHYSICAL EXAMINATION: GENERAL: Well-appearing, well-nourished and in no acute distress. LUNGS: Breath sounds clear to auscultation bilaterally and equal. No wheezes rales or rhonchi. HEART: Regular rate and rhythm without murmurs, rubs, gallops. Musculoskeletal: Rt hip: LROM to passive/active. Strength 4+/5 due to pain. N/ V intact distal. No bony tenderness. Pt internally rotated currently. + leg length discrepancy. Extremities: No cyanosis, clubbing, or edema b/l. Peripheral pulses 2+. Capillary refill less than 3 seconds. Mary neg b/l. PSYCH: Normal mood, normal affect. SKIN: Warm, Dry, normal turgor, no rashes or lesions noted. (ZEHRA COLLINS) Course - Diagnostic Test Radiology reviewed: Image reviewed, Reports reviewed <KAMARI CHILEL - Last Filed: 08/17/18 13:14> - Re-evaluation Re-evalutation: 08/17/18 12:31 Patient is an afebrile, well-hydrated, 83-year-old male who presents to the ED with Rt hip dislocation. Vitals are acceptable without any significant tachycardia, tachypnea, or hypoxia. PE is otherwise unremarkable for any neurovascular compromise, obvious tendon/ligament rupture, open fracture, septic joint. See XR result. CT was obtained to further clarify for possible fracture which was otherwise unremarkable. Splint applied today. Dr. Chilel was consulted who ran the conscious sedation. Rt hip was reduced successfully w /o any complications. Pt tolerated proc well. Reimaging shows reduction successful as well. Patient is nontoxic-appearing. No other labs or imaging warranted at this time based on H&P. Conservative measures otherwise for symptoms. Recheck with your PCM in 3-5 days. Call your orthopedic provider today and keep appointment otherwise as scheduled on September 09. Return to the ED with any worsening/concerning symptoms otherwise as reviewed in discharge. Patient is in agreement. (ZEHRA COLLINS) - Vital Signs Vital signs: Temp Pulse Resp BP Pulse Ox 98.1 F 90 13 175/67 H 96 10/20/18 13:01 08/17/18 13:01 08/17/18 13:01 08/17/18 13:01 08/17/18 13:01 Procedures - Conscious Sedation Conscious sedation Time started: 11:15 Time completed: 11:20 - Joint Reduction/Fracture Care Right Hip Time completed: 11:20 Consent obtained: Yes Conscious sedation: Yes - propofol Pre-procedure NV exam: Yes - normal Manipulation comment: Captain Houser technique utilized Post-procedure NV exam: Yes - normal Post-reduction x-ray: Joint reduced Reduction attempts: 1 Complications: No <ZEHRA COLLINS - Last Filed: 08/17/18 12:33> - Conscious Sedation Conscious sedation Consent obtained: Yes Indication: Right hip dislocation Prior complications: Procedural sedation Pt with a mild systemic disease.: P2. - ASA Classification. Airway Evaluation: Normal anatomy Mallampati Classification: Class 2 Used during procedure: Suction available, IV access obtained, Pulse ox on pt., environmental monitoring technician on pt. Medications administered: Other - Propofol Reversal agents: None I personally performed/intraservice time: Sedation, Procedure, 31-45 min Complications: No <KAMARI CHILEL E - Last Filed: 08/17/18 13:14> Discharge <ZEHRA COLLINS - Last Filed: 08/17/18 12:33> <KAMARI CHILEL E - Last Filed: 08/17/18 13:14> - Discharge Clinical Impression: Hip dislocation, right Qualifiers: Encounter type: initial encounter Qualified Code(s): S73.004A - Unspecified dislocation of right hip, initial encounter Condition: Stable Disposition: HOME, SELF-CARE Additional Instructions: Rest, Ice, Compression Use splint as directed Tylenol/ibuprofen as needed Avoid strenuous movements or high torque movements F/u with your PCP in 3-5 days for a recheck Call your Orthopedic provider today and keep appointment otherwise on Sep 09 Return to the ED with any worsening symptoms and/or development of fever, headache, chest pain, palpitations, syncope, shortness of breath, trouble breathing, abdominal pain, n/v/d, muscle weakness/paralysis, numbness/tingling, swelling, redness, or other worsening symptoms that are concerning to you. Forms: Elevated Blood Pressure Referrals: HANSA FAJARDO MD [Primary Care Provider] - Follow up as needed
[2018-08-17] MEDS ORDERED: PROPOFOL INJ 200 MG/20 ML VIAL IV ONE ×2 (08:31→11:26)
[2018-08-17] MEDS ORDERED: NORMAL SALINE 1000 ML 1,000 ML IV ONE (08:31)
--- NOTE | 2018-08-17 09:00 | RADIOLOGY REPORT (SQ) ---
EXAM DESCRIPTION: HIP RIGHT AP/LATERAL COMPLETED DATE/TIME: 08/17/2018 8:29 am REASON FOR STUDY: possible hip dislocation, frequent history of COMPARISON: Multiple previous since 05/27/2018 NUMBER OF VIEWS: Two views. TECHNIQUE: AP pelvis and additional frog-leg view of the right hip. LIMITATIONS: None. FINDINGS: MINERALIZATION: Osteoporotic RIGHT HIP: Patient has a right total hip arthroplasty. The femoral component is dislocated posterosu periorly. On the attempted frog-leg lateral, there is periosteal new bone along the medial wall of t he right acetabulum with a lucency worrisome for subacute healing fracture. There is lucency between the femoral component of the right hip replacement and port lions bone along the mid third of the femoral prosthesis. This is worrisome for loosening and is similar compared to the previous exams. 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 This is similar compared to pre vious exams. No left hip acute fracture. PUBIS AND ISCHIUM: Suspect a subacute fracture along the left superior pubic ramus, marked with a cir shanta on the oblique view. This is likely subacute. PELVIS: Suspect a left superior pubic ramus subacute fracture. Remainder of the bony pelvis is gross ly intact SACRUM: No gross acute fracture LOWER LUMBAR SPINE: Lower lumbar disc space narrowing SOFT TISSUES: Diffuse atherosclerotic arterial vascular calcification OTHER: No other significant finding. IMPRESSION: Acute right femoral head dislocation out of the acetabular component of a right total hi p arthroplasty Suspected subacute nondisplaced fractures along the right pelvis adjacent to the hip prosthesis, and along the left superior pubic ramus. Consider bone scan for followup Lucency around the right mid third femoral component, similar compared to previous exams likely due t o prosthesis loosening TECHNICAL DOCUMENTATION: JOB ID: [id number] [employer]- All Rights Reserved Reading location - IP/workstation name: [email or web address]
[2018-08-17] MEDS ORDERED: FENTANYL CITRATE INJ/PF 100 MCG/2 ML AMPUL IV ONE (09:18)
--- NOTE | 2018-08-17 10:35 | RADIOLOGY REPORT (SQ) ---
EXAM DESCRIPTION: CT PELVIS WITHOUT COMPLETED DATE/TIME: 08/17/2018 10:12 am REASON FOR STUDY: noted subacute fx in setting of dislocation COMPARISON: Multiple previous right hip and pelvis films dating back to 05/27/2018 TECHNIQUE: CT scan of the pelvis performed without intravenous or oral contrast. Images reviewed wi th soft tissue and bone windows. Reconstructed coronal and sagittal MPR images reviewed. All images stored on PACS. All CT scanners at this facility use dose modulation, iterative reconstruction, and/or weight based d osing when appropriate to reduce radiation dose to as low as reasonably achievable (ALARA). [facility]: Dose Right [facility]: CareDose [facility]: Dose Right [facility]: Teradose 4D [facility]: [employer] RADIATION DOSE: CT Rad equipment meets quality standard of care and radiation dose reduction techniq ues were employed. CTDIvol: 18.3 mGy. DLP: 478 mGy-cm. mGy. LIMITATIONS: None. FINDINGS: PELVIC BONES: Bones are osteoporotic. There is no right medial acetabular fracture or lef t superior pubic ramus fracture by CT. Remainder of the bony pelvis is otherwise unremarkable aside from mild degenerative changes bilateral SI joints. VISUALIZED SPINE: No acute findings. RIGHT HIP: Right total hip arthroplasty with posterior dislocation of the right femoral head out of the acetabul ar prosthesis. Heterotopic bone along the proximal right femoral diaphysis. LEFT HIP: No acute fracture or dislocation. Advanced osteoarthritis left hip with bone on bone appea hossein and flattening of the left femoral head. PELVIC SOFT TISSUES: No significant findings. EXTRAPELVIC SOFT TISSUES: No significant findings. OTHER: No other significant finding. IMPRESSION: Posterior dislocation of the femoral head prosthesis out of the acetabular prosthesis. No fracture along the medial wall right acetabulum or left superior pubic ramus TECHNICAL DOCUMENTATION: JOB ID: [id number] Quality ID # [id number]: Final reports with documentation of one or more dose reduction techniques (e.g., Au tomated exposure control, adjustment of the mA and/or kV according to patient size, use of iterative reconstruction technique) 2010 [employer]- All Rights Reserved Reading location - IP/workstation name: [email or web address]
--- NOTE | 2018-08-17 12:36 | RADIOLOGY REPORT (SQ) ---
EXAM DESCRIPTION: HIP RIGHT AP/LATERAL COMPLETED DATE/TIME: 08/17/2018 12:25 pm REASON FOR STUDY: s/p reduction COMPARISON: None. NUMBER OF VIEWS: Two views. TECHNIQUE: AP pelvis and additional frog-leg view of the right hip. LIMITATIONS: None. FINDINGS: Post closed reduction of a right femoral head dislocation. There is normal alignment at t he right hip between the femoral head prosthesis and acetabular prosthesis. Again, some lucency betw een the hardware and lummi bone, mid 3rd femur is present likely from chronic loosening. No pelvis fracture. Advanced osteoarthritis left hip with left femoral head articular surface flatte jg. IMPRESSION: Normal alignment at the right hip prosthesis TECHNICAL DOCUMENTATION: JOB ID: [id number] [employer]- All Rights Reserved Reading location - IP/workstation name: [email or web address]
[2018-08-17 13:02] VITALS: BP 175/67
== END 2018-08-17 13:20 | disposition home or self-care (01) ==
LOC: ER 07:14
PROC: 0SS9XZZ Reposition Right Hip Joint, External Approach (ICD-10-PCS; principal; 2018-08-17)
DX: S73.004A Unspecified dislocation of right hip, initial encounter (principal); X58.XXXA Exposure to other specified factors, initial encounter; Y92.009 Unspecified place in unspecified non-institutional (private) residence as the place of occurrence of the external cause; I25.2 Old myocardial infarction; I10 Essential (primary) hypertension; E11.9 Type 2 diabetes mellitus without complications; Z95.1 Presence of aortocoronary bypass graft
CPT/HCPCS: 99284; 96360; 99153; 99152; 73502; 72192; 27250; J3010; J7030; J2704

== ENCOUNTER → 2019-04-01 | Outpatient (CLI) | payer OTHER, MEDICARE ==
--- NOTE | 2019-04-01 15:26 | RADIOLOGY REPORT (SQ) ---
EXAM DESCRIPTION: HIP RIGHT AP/LATERAL COMPLETED DATE/TIME: 04/01/2019 3:10 pm REASON FOR STUDY: UNSPECIFIED OPEN WOUND, RIGHT HIP, INITIAL ENCOUNTER S71.001A UNSPECIFIED OPEN WO UND, RIGHT HIP, INITIAL ENCOUNTE E11.621 TYPE 2 DIABETES MELLITUS WITH FOOT ULCER COMPARISON: 08/17/2018 NUMBER OF VIEWS: Two views. TECHNIQUE: AP pelvis and additional frog-leg view of the right hip. LIMITATIONS: None. FINDINGS: MINERALIZATION: Normal. RIGHT HIP: Right hip arthroplasty in good position. LEFT HIP: Degenerative joint changes with hip dysplasia. PUBIS AND ISCHIUM: No fracture. PELVIS: No fracture. SACRUM: No fracture or dislocation. No worrisome bone lesions. LOWER LUMBAR SPINE: Lower lumbar degenerative disc disease and spondylosis. SOFT TISSUES: No findings. OTHER: No other significant finding. 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 Lumbar degenerative changes. TECHNICAL DOCUMENTATION: JOB ID: [id number] [employer]- All Rights Reserved Reading location - IP/workstation name: [email or web address]
[2019-04-01 15:53] LABS: ABSOLUTE BASOPHILS # (AUTO) 0.1 10^3/uL (0.0-0.2); ABSOLUTE EOSINOPHILS # (AUTO) 1.1 10^3/uL (0.0-0.6); ABSOLUTE LYMPHOCYTES (AUTO) 2.1 10^3/uL (0.5-4.7); ABSOLUTE MONOCYTES (AUTO) 0.9 10^3/uL (0.1-1.4); ABSOLUTE NEUT (AUTO) 6.2 10^3/uL (1.7-8.2); BASOPHILS % (AUTO) 0.6 % (0-2); EOSINOPHILS % (AUTO) 10.5 % (0-6); HEMATOCRIT 40.1 % (37.9-51.0); LYMPHOCYTES % (AUTO) 20.3 % (13-45); MEAN CORPUSCULAR HEMOGLOBIN 25.9 pg (27.0-33.4); MEAN CORPUSCULAR HGB CONC 32.5 g/dL (32.0-36.0); MEAN CORPUSCULAR VOLUME 80 fl (80-97); MONOCYTES % (AUTO) 8.8 % (3-13); PLATELET COUNT 402 10^3/uL (150-450); RED BLOOD COUNT 5.02 10^6/uL (4.35-5.55); RED CELL DISTRIBUTION WIDTH 17.3 % (11.5-14.0); SEGMENTED NEUTROPHILS % (AUTO) 59.8 % (42-78); TOTAL CELLS COUNTED % (AUTO) 100 %; WHITE BLOOD COUNT 10.4 10^3/uL (4.0-10.5)
[2019-04-01 16:12] LABS: ALANINE AMINOTRANSFERASE 14 U/L (21-72); ALBUMIN 4.2 g/dL (3.5-5.0); ALKALINE PHOSPHATASE 191 U/L (38-126); ANION GAP 12 (5-19); ASPARTATE AMINO TRANSFERASE 36 U/L (17-59); BILIRUBIN,DIRECT 0.3 mg/dL (0.0-0.4); BILIRUBIN,TOTAL 0.3 mg/dL (0.2-1.3); BLOOD UREA NITROGEN 30 mg/dL (7-20); C-REACTIVE PROTEIN 46.5 mg/L (<10.0); CARBON DIOXIDE 27 mmol/L (22-30); CHLORIDE 101 mmol/L (98-107); GLUCOSE 94 mg/dL (75-110); SODIUM 139.7 mmol/L (137-145); TOTAL PROTEIN 7.8 g/dL (6.3-8.2)
[2019-04-01 16:37] LABS: ERYTHROCYTE SEDIMENTATION RATE 93 mm/hr (0-20)
== END ==
LOC: WC 14:43
PROVIDERS: ATTEND Nurse Practitioner Family
DX: S71.001A Unspecified open wound, right hip, initial encounter (principal); X58.XXXA Exposure to other specified factors, initial encounter; M16.12 Unilateral primary osteoarthritis, left hip; E11.621 Type 2 diabetes mellitus with foot ulcer; Q65.89 Other specified congenital deformities of hip
CPT/HCPCS: 36415; 80053; 83036; 85025; 85652; 86140

== ENCOUNTER 2019-04-02 10:07 | Emergency (ER) | payer OTHER, MEDICARE ==
--- NOTE | 2019-04-02 10:39 | ER Document Report ---
ED Medical Screen (RME) - General Chief Complaint: Abnormal Lab Results Stated Complaint: ABNORMAL LABS Time Seen by Provider: 04/02/19 10:30 Primary Care Provider: DUNG OROZCO NP, [facility] [Primary Care Provider] - Follow up as needed Mode of Arrival: Wheelchair Information source: Patient Notes: Patient had routine outpatient lab work and was advised that his potassium was elevated. Patient encouraged to come here for further evaluation. Patient denies any complaints or symptoms at this time. hx: Diabetes, GERD, Parkinson's, hypertension, pacemaker I have greeted and performed a rapid initial assessment of this patient. A comprehensive ED assessment and evaluation of the patient, analysis of test results and completion of the medical decision making process will be conducted by additional ED providers. TRAVEL OUTSIDE OF THE [place] IN LAST 30 DAYS: No - Related Data Allergies/Adverse Reactions: No Known Allergies Allergy (Verified 04/02/19 10:09) Past Medical History - Past Medical History Cardiac Medical History: Reports: Hx Heart Attack, Hx Hypertension Endocrine Medical History: Reports: Hx Diabetes Mellitus Type 2 Renal/ Medical History: Denies: Hx Peritoneal Dialysis Past Surgical History: Reports: Hx Cardiac Catheterization, Hx Cardiac Surgery - double bipass, Hx Orthopedic Surgery - R hip Physical Exam - Vital signs Vitals: Temp Pulse Resp BP Pulse Ox 97.3 F 70 17 130/63 H 95 04/02/19 10:20 04/02/19 10:20 04/02/19 10:20 04/02/19 10:20 04/02/19 10:20 - Cardiovascular Rhythm: Regular Heart sounds: S1 appreciated, S2 appreciated Course - Vital Signs Vital signs: Temp Pulse Resp BP Pulse Ox 97.3 F 70 17 130/63 H 04/02/19 10:20 04/02/19 10:20 04/02/19 10:20 04/02/19 10:20 04/02/19 10:20 Doctor's Discharge - Discharge Referrals: DUNG OROZCO NP, [facility] SPECIALIST [Primary Care Provider] - Follow up as needed
[2019-04-02 11:19] LABS: ABSOLUTE BASOPHILS # (AUTO) 0.1 10^3/uL (0.0-0.2); ABSOLUTE EOSINOPHILS # (AUTO) 0.9 10^3/uL (0.0-0.6); ABSOLUTE LYMPHOCYTES (AUTO) 1.7 10^3/uL (0.5-4.7); ABSOLUTE NEUT (AUTO) 7.2 10^3/uL (1.7-8.2); EOSINOPHILS % (AUTO) 8.2 % (0-6); LYMPHOCYTES % (AUTO) 15.9 % (13-45); MEAN CORPUSCULAR HEMOGLOBIN 25.7 pg (27.0-33.4); MEAN CORPUSCULAR HGB CONC 32.6 g/dL (32.0-36.0); MEAN CORPUSCULAR VOLUME 79 fl (80-97); MONOCYTES % (AUTO) 9.1 % (3-13); PLATELET COUNT 412 10^3/uL (150-450); RED BLOOD COUNT 5.06 10^6/uL (4.35-5.55); SEGMENTED NEUTROPHILS % (AUTO) 65.8 % (42-78); TOTAL CELLS COUNTED % (AUTO) 100 %
[2019-04-02 11:43] LABS: ALANINE AMINOTRANSFERASE 10 U/L (21-72); ALKALINE PHOSPHATASE 187 U/L (38-126); ANION GAP 11 (5-19); ASPARTATE AMINO TRANSFERASE 37 U/L (17-59); BILIRUBIN,DIRECT 0.4 mg/dL (0.0-0.4); BILIRUBIN,TOTAL 0.4 mg/dL (0.2-1.3); BLOOD UREA NITROGEN 33 mg/dL (7-20); CALCIUM 9.8 mg/dL (8.4-10.2); CARBON DIOXIDE 26 mmol/L (22-30); CHLORIDE 100 mmol/L (98-107); GLUCOSE 106 mg/dL (75-110); SODIUM 137.1 mmol/L (137-145); TOTAL PROTEIN 7.7 g/dL (6.3-8.2)
--- NOTE | 2019-04-02 13:32 | EKG REPORT ---
SEVERITY:- ABNORMAL ECG - SINUS RHYTHM FIRST DEGREE AV BLOCK LEFT BUNDLE BRANCH BLOCK : Confirmed by: Ned Vazquez MD 02-Apr-2019 13:30:59
[2019-04-02] MEDS ORDERED: NORMAL SALINE 1000 ML 1,000 ML IV ONE (14:15)
[2019-04-02] MEDS ORDERED: INSULIN REG, HUMAN 100 UNIT/ML 3 ML VIAL (PYX) IV ONE (14:16)
[2019-04-02] MEDS ORDERED: DEXTROSE 50%-WATER 25 GM/50 ML DISP.SYRIN IV ONE (14:16)
[2019-04-02] MEDS ORDERED: FUROSEMIDE INJ/PF 20 MG/2 ML SDV IV ONE (14:24)
[2019-04-02] MEDS ORDERED: SODIUM POLYSTYRENE SULFONATE 15 GM/60 ML PO ONE (14:26)
[2019-04-02] MEDS ORDERED: ALBUTEROL SULFATE 0.083% NEB 2.5 MG/3 ML AMPUL NEB ONE (14:26)
--- NOTE | 2019-04-02 14:31 | ER Document Report ---
ED General - General Chief Complaint: Abnormal Lab Results Stated Complaint: ABNORMAL LABS Time Seen by Provider: 04/02/19 10:30 Primary Care Provider: DUNG OROZCO [employer], [employer] [NURSE PRACTITIONER] - Follow up as needed Mode of Arrival: Wheelchair Information source: Patient, Relative, [facility] Records Notes: A 84-year-old male with type 2 diabetes, hypertension, coronary artery disease, Parkinson's presents after recent blood work showed an elevated potassium. Patient reports feeling well. Denies any recent illness. Denies fever, chills, nausea, vomiting, chest pain, palpitations, weakness shortness of breath, abdominal pain, diarrhea. He is undergoing wound care for a right hip wound after a right hip replacement. Last seen by wound care yesterday. Denies any n ew medication, supplements. TRAVEL OUTSIDE OF THE [place] IN LAST 30 DAYS: No - HPI Onset: Other Quality of pain: No pain Severity: None Pain Level: Denies Associated symptoms: None. denies: Chest pain, Productive cough, Diarrhea, Fever, Headache, Nausea, Vomiting, Shortness of breath, Slow to respond, Weakness Exacerbated by: Denies Relieved by: Denies Similar symptoms previously: No Recently seen / treated by doctor: Yes - Related Data Allergies/Adverse Reactions: No Known Allergies Allergy (Verified 04/02/19 10:09) Past Medical History - General Information source: Patient - Social History Smoking Status: Never Smoker Frequency of alcohol use: None Drug Abuse: None Lives with: Family Family History: None, Reviewed & Not Pertinent Patient has suicidal ideation: No Patient has homicidal ideation: No - Past Medical History Cardiac Medical History: Reports: Hx Heart Attack, Hx Hypertension Endocrine Medical History: Reports: Hx Diabetes Mellitus Type 2 Renal/ Medical History: Denies: Hx Peritoneal Dialysis Past Surgical History: Reports: Hx Cardiac Catheterization, Hx Cardiac Surgery - double bipass, Hx Orthopedic Surgery - R hip Review of Systems - Review of Systems Notes: REVIEW OF SYSTEMS: CONSTITUTIONAL : Denies fever, chills, or sweats. Denies recent illness. Denies weight loss, recent hospitalizations. EENT: Denies visual changes, eye pain. Denies sore throat, oral lesions, difficulty swallowing. CARDIOVASCULAR: Denies chest pain. Denies palpitations. Denies lower extremity edema. RESPIRATORY: Denies cough. Denies shortness of breath, wheezing. GASTROINTESTINAL: Denies abdominal pain or distention. Denies nausea, vomiting, or diarrhea. Denies blood in vomitus, stools, or per rectum. Denies black, tarry stools. Denies constipation. GENITOURINARY: Denies difficulty urinating, painful urination, frequency, blood in urine, testicular pain or penile discharge. MUSCULOSKELETAL: Denies back or neck pain or stiffness. Denies joint pain or swelling. SKIN: Denies rash, right hip wound HEMATOLOGIC : Denies easy bruising or bleeding. LYMPHATIC: Denies swollen glands. NEUROLOGICAL: Denies confusion or altered mental status. Denies loss of consciousness. Denies dizziness or lightheadedness. Denies headache. Denies weakness or paralysis. Denies problems difficulty with ambulation, slurred s peech. Denies sensory loss, numbness, or tingling. Denies seizures. PSYCHIATRIC: Denies anxiety or stress. Denies depression, suicidal ideation, or Physical Exam - Vital signs Vitals: Temp Pulse Resp BP Pulse Ox 97.3 F 70 17 130/63 H 95 04/02/19 10:20 04/02/19 10:20 04/02/19 10:20 04/02/19 10:20 04/02/19 10:20 - Notes Notes: PHYSICAL EXAMINATION: GENERAL: Well-appearing, well-nourished and in no acute distress. HEAD: Atraumatic, normocephalic. EYES: Pupils equal round and reactive to light, extraocular movements intact, sclera anicteric, conjunctiva are normal. ENT: Nares patent, oropharynx clear without exudates. Moist mucous membranes. NECK: Normal range of motion, supple without lymphadenopathy LUNGS: Breath sounds clear to auscultation bilaterally and equal. No wheezes rales or rhonchi. HEART: Regular rate and rhythm without murmurs ABDOMEN: Soft, nontender, nondistended abdomen. No guarding, no rebound. No masses appreciated. Musculoskeletal: Normal range of motion, no pitting or edema. No cyanosis. NEUROLOGICAL: Cranial nerves grossly intact. Normal speech, normal gait. Normal sensory, motor exams PSYCH: Normal mood, normal affect. SKIN: Right hip wound with bandage intact. No associated erythema, pain with palpation. Course - Re-evaluation Re-evalutation: 04/02/19 16:56 Laboratory 04/02/19 04/02/19 04/02/19 10:52 10:52 10:52 WBC 11.0 H RBC 5.06 Hgb 13.0 L Hct 40.0 MCV 79 L MCH 25.7 L MCHC 32.6 RDW 17.0 H Plt Count 412 Seg Neutrophils % 65.8 Lymphocytes % 15.9 Monocytes % 9.1 Eosinophils % 8.2 H Basophils % 1.0 Absolute Neutrophils 7.2 Absolute Lymphocytes 1.7 Absolute Monocytes 1.0 Absolute Eosinophils 0.9 H Absolute Basophils 0.1 Sodium 137.1 Potassium 6.0 H* Cancelled Chloride 100 Carbon Dioxide 26 Anion Gap 11 BUN 33 H Creatinine 1.44 H Est GFR ( Amer) 56 L Est GFR (Non-Af Amer) 47 L Glucose 106 Calcium 9.8 Magnesium 2.3 Total Bilirubin 0.4 Direct Bilirubin 0.4 Neonat Total Bilirubin Not Reportable Neonat Direct Bilirubin Not Reportable Neonat Indirect Bili Not Reportable AST 37 ALT 10 L Alkaline Phosphatase 187 H Total Protein 7.7 Albumin 4.0 04/02/19 16:00 WBC RBC Hgb Hct MCV MCH MCHC RDW Plt Count Seg Neutrophils % Lymphocytes % Monocytes % Eosinophils % Basophils % Absolute Neutrophils Absolute Lymphocytes Absolute Monocytes Absolute Eosinophils Absolute Basophils Sodium Potassium 4.2 D Chloride Carbon Dioxide Anion Gap BUN Creatinine Est GFR ( Amer) Est GFR (Non-Af Amer) Glucose Calcium Magnesium Total Bilirubin Direct Bilirubin Neonat Total Bilirubin Neonat Direct Bilirubin Neonat Indirect Bili AST ALT Alkaline Phosphatase Total Protein Albumin Temp Pulse Resp BP Pulse Ox 97.3 F 70 20 150/82 H 96 04/02/19 10:20 04/02/19 10:20 04/02/19 16:01 04/02/19 16:01 04/02/19 16:01 04/02/19 17:03 Patient is asymptomatic. Has appropriate renal function. Medications were reviewed and did not reveal any medications that may cause hyperkalemia. Repeat potassium now 4.2. Patient will be sent home with 2 days of Kayexalate and recommendations to follow-up with his primary care physician in 24 to 48 hours. EKG showed normal sinus rhythm with a QTC of 535 which is unchanged from his previous EKG. EKG does not show peaked T waves. QRS is slightly prolonged at 130 but when compared to previous EKG his QRS is much improved. No ND depression 04/02/19 17:04 Patient did receive insulin, dextrose, butyryl. Patient was discharged home with his daughter who states she is comfortable taking him home. Advised follow-up with his primary care physician in the next 24 to 48 hours. 2 days of Kayexalate was given to the patient. Repeat EKG shows a paced rhythm, QRS 120 QTc 488. 04/02/19 21:25 Patient was evaluated and treated as appropriate for the patient's presenting symptoms and complaint, with consideration of any critical or life threatening conditions that may be associated with their obtained history and exam as noted above. All results were discussed with patient and his daughter who is at the best side. Patient provided the opportunity to ask questions, and express concerns. Patient was educated on treatments based on their presumed diagnosis as noted above. At this time we will discharge the patient with return precautions and follow-up recommendations. Verbal discharge instructions given a the bedside. Medication warnings reviewed. Patient is in agreement with this plan and has verbalized understanding of return precautions. After careful consideration I feel that that patient can be safely discharged from the emergency department, they were advised to followup with a primary care physician in 2-3 days. Dictation on this chart was performed using voice recognition software and may result in unintended grammatical, spelling, syntax or errors. - Vital Signs Vital signs: Temp Pulse Resp BP Pulse Ox 97.8 F 70 17 145/74 H 92 04/02/19 17:03 04/02/19 10:20 04/02/19 17:03 04/02/19 17:03 04/02/19 17:03 - Laboratory Result Diagrams: 04/02/19 10:52 04/02/19 16:00 Laboratory results interpreted by me: 04/02/19 04/02/19 10:52 10:52 WBC 11.0 H Hgb 13.0 L MCV 79 L MCH 25.7 L RDW 17.0 H Eosinophils % 8.2 H Absolute Eosinophils 0.9 H Potassium 6.0 H* BUN 33 H Creatinine 1.44 H Est GFR ( Amer) 56 L Est GFR (Non-Af Amer) 47 L ALT 10 L Alkaline Phosphatase 187 H - EKG Interpretation by [place] EKG shows normal: Sinus rhythm Rate: Normal Rhythm: NSR Heart block present: 1st Degree - QTC 535 When compared to previous EKG there are: No significant change Discharge - Discharge Clinical Impression: Hyperkalemia, Renal insufficiency Hypertension Qualifiers: Hypertension type: unspecified Qualified Code(s): I10 - Essential (primary) hypertension Condition: Good Disposition: HOME, SELF-CARE Additional Instructions: Your blood work today showed a potassium of 6. Repeat labs show a potassium of 4.2. Avoid foods high in potassium. I have reviewed her medications and do not see any of them could cause this. Please take your lab work to your primary care physician in the next 1 to 2 days. Follow up with your [id number] hours for further care or return to the ED IMMEDIATELY if symptoms worsen or you have any concerns. If you cannot afford to follow up with your primary care physician a list of low cost clinics have been provided at the end of your discharge papers as well. Most prescribed medications have multiple side effects. The safest thing to do is when filling your prescription speak to your pharmacist regarding possible interactions with your normal home medications and over the counter medications such as Ibuprofen, Tylenol, Benadryl. If you experience any symptoms that cause you discomfort or concern you should discontinue the medication immediately and return to the emergency room or call your primary care physician. Prescriptions: Sodium Polystyrene Sulfonate [Kayexalate 15 Gm/60 Ml Susp 60 Ml] 15 gm PO DAILY 2 Days #120 ml Referrals: DUNG OROZCO [employer], [employer] [NURSE PRACTITIONER] - Follow up as needed
[2019-04-02 17:33] VITALS: BP 145/74
--- NOTE | 2019-04-02 18:25 | EKG REPORT ---
SEVERITY:- ABNORMAL ECG - SINUS RHYTHM SINUS PAUSE/ARREST WITH ATRIAL ESCAPE FIRST DEGREE AV BLOCK INCOMPLETE LEFT BUNDLE BRANCH BLOCK ANTERIOR Q WAVES, POSSIBLY DUE TO ILBBB : Confirmed by: Ned Vazquez MD 02-Apr-2019 18:24:32
== END 2019-04-02 17:39 | disposition home or self-care (01) ==
LOC: ER 10:07
DX: E87.5 Hyperkalemia (principal); N28.9 Disorder of kidney and ureter, unspecified; I10 Essential (primary) hypertension; I44.0 Atrioventricular block, first degree; E11.9 Type 2 diabetes mellitus without complications; I25.10 Atherosclerotic heart disease of native coronary artery without angina pectoris; G20 Parkinson's disease; Z96.641 Presence of right artificial hip joint
CPT/HCPCS: 93005; 94640; 99283; 96361; 96374; 96375; 36415; 83735; 84132; 85025; 80053; 93010; J3490; J1940; J1815; J7030

== ENCOUNTER → 2019-04-23 | Outpatient (CLI) | payer MEDICARE, OTHER ==
[2019-04-23 11:44] LABS: ABSOLUTE BASOPHILS # (AUTO) 0.1 10^3/uL (0.0-0.2); ABSOLUTE EOSINOPHILS # (AUTO) 0.8 10^3/uL (0.0-0.6); ABSOLUTE LYMPHOCYTES (AUTO) 1.9 10^3/uL (0.5-4.7); ABSOLUTE NEUT (AUTO) 8.7 10^3/uL (1.7-8.2); BASOPHILS % (AUTO) 0.6 % (0-2); EOSINOPHILS % (AUTO) 6.7 % (0-6); HEMOGLOBIN 13.4 g/dL (13.5-17.0); LYMPHOCYTES % (AUTO) 15.2 % (13-45); MEAN CORPUSCULAR HEMOGLOBIN 26.3 pg (27.0-33.4); MEAN CORPUSCULAR HGB CONC 32.8 g/dL (32.0-36.0); MEAN CORPUSCULAR VOLUME 80 fl (80-97); MONOCYTES % (AUTO) 8.3 % (3-13); PLATELET COUNT 383 10^3/uL (150-450); RED BLOOD COUNT 5.11 10^6/uL (4.35-5.55); SEGMENTED NEUTROPHILS % (AUTO) 69.2 % (42-78); TOTAL CELLS COUNTED % (AUTO) 100 %; WHITE BLOOD COUNT 12.5 10^3/uL (4.0-10.5)
[2019-04-23 12:05] LABS: ALANINE AMINOTRANSFERASE 9 U/L (21-72); ALBUMIN 4.2 g/dL (3.5-5.0); ALKALINE PHOSPHATASE 220 U/L (38-126); ANION GAP 14 (5-19); ASPARTATE AMINO TRANSFERASE 34 U/L (17-59); BILIRUBIN,DIRECT 0.3 mg/dL (0.0-0.4); BILIRUBIN,TOTAL 0.5 mg/dL (0.2-1.3); BLOOD UREA NITROGEN 47 mg/dL (7-20); CALCIUM 9.9 mg/dL (8.4-10.2); CARBON DIOXIDE 21 mmol/L (22-30); CHLORIDE 102 mmol/L (98-107); GLUCOSE 125 mg/dL (75-110); POTASSIUM 5.2 mmol/L (3.6-5.0); SODIUM 137.1 mmol/L (137-145); TOTAL PROTEIN 8.1 g/dL (6.3-8.2)
--- NOTE | 2019-04-23 12:10 | RADIOLOGY REPORT (SQ) ---
EXAM DESCRIPTION: CT RT LOWER EXTREMITY WITHOUT COMPLETED DATE/TIME: 04/23/2019 11:12 am REASON FOR STUDY: ABSCESS OF BURSA, RIGHT HIP (M71.051), NON-PRS CHRONIC ULCER OTH PRT R LOW L97.812 NON-PRS CHRONIC ULCER OTH PRT R LOW LEG W FAT LAYER M71.051 ABSCESS OF BURSA, RIGHT HIP COMPARISON: X-ray dated 04/01/2019. CT dated 08/17/2018. TECHNIQUE: CT scan of the right hip performed without intravenous or oral contrast. Images reviewed with soft tissue and bone windows. Reconstructed coronal and sagittal MPR images reviewed. All wilmar ges stored on PACS. All CT scanners at this facility use dose modulation, iterative reconstruction, and/or weight based d osing when appropriate to reduce radiation dose to as low as reasonably achievable (ALARA). [facility]: Dose Right [facility]: CareDose [facility]: Dose Right [facility]: Teradose 4D [facility]: [employer] RADIATION DOSE: CT Rad equipment meets quality standard of care and radiation dose reduction techniq ues were employed. CTDIvol: 6.8 mGy. DLP: 231 mGy-cm. mGy. LIMITATIONS: None. FINDINGS: PELVIC BONES: No acute fracture. No worrisome bone lesions. SYMPTOMATIC HIP: Hip prosthesis in place. No acute fracture or dislocation. PELVIC SOFT TISSUES: There is a soft tissue defect lateral to the hip prosthesis with packing materia l present. No significant discrete fluid collection. EXTRAPELVIC SOFT TISSUES: No significant findings. OTHER: No other significant finding. IMPRESSION: RIGHT HIP PROSTHESIS. SOFT TISSUE DEFECT LATERAL TO THE PROSTHESIS WITH PACKING MATERIA L IN PLACE. NO SIGNIFICANT ASSOCIATED FLUID COLLECTION. TECHNICAL DOCUMENTATION: JOB ID: [id number] Quality ID # [id number]: Final reports with documentation of one or more dose reduction techniques (e.g., Au tomated exposure control, adjustment of the mA and/or kV according to patient size, use of iterative reconstruction technique) 2010 [employer]- All Rights Reserved Reading location - IP/workstation name: [email or web address]
[2019-04-23 12:22] LABS: ERYTHROCYTE SEDIMENTATION RATE 91 mm/hr (0-20)
== END ==
LOC: RAD 10:47
PROVIDERS: ATTEND Nurse Practitioner Family
DX: M71.051 Abscess of bursa, right hip (principal); L97.10 Non-pressure chronic ulcer of unspecified thigh
CPT/HCPCS: 36415; 80053; 85025; 85652; 86140

== ENCOUNTER → 2019-05-28 | Outpatient (CLI) | payer MEDICARE, OTHER ==
--- NOTE | 2019-05-28 13:55 | RADIOLOGY REPORT (SQ) ---
EXAM DESCRIPTION: HIP RIGHT AP/LATERAL COMPLETED DATE/TIME: 05/28/2019 1:40 pm REASON FOR STUDY: S71.001A UNSPECIFIED OPEN WOUND, RIGHT HIP, INITIAL ENCOUNTER S71.001A UNSPECIFIE D OPEN WOUND, RIGHT HIP, INITIAL ENCOUNTE COMPARISON: 04/01/2019 NUMBER OF VIEWS: Two views. TECHNIQUE: AP and frog-leg view of the right hip. LIMITATIONS: None. FINDINGS: MINERALIZATION: Normal. RIGHT HIP: There is been a prior right hip replacement. There is lucency along the proximal cortex o f the femoral shaft. This is unchanged from prior study. No acute fracture or dislocation. OPPOSITE HIP: Marked left-sided joint space narrowing. Flattening of the femoral head. SOFT TISSUES: Vascular calcification. OTHER: No other significant finding. IMPRESSION: No interval change in the appearance of the right hip. Left hip dysplasia. Extensive v ascular calcification. TECHNICAL DOCUMENTATION: JOB ID: [id number] [employer]- All Rights Reserved Reading location - IP/workstation name: [email or web address]
== END ==
LOC: RAD 13:16
PROVIDERS: ATTEND Nurse Practitioner Family
DX: S71.001A Unspecified open wound, right hip, initial encounter (principal); Z96.641 Presence of right artificial hip joint; X58.XXXA Exposure to other specified factors, initial encounter; E11.621 Type 2 diabetes mellitus with foot ulcer

== ENCOUNTER → 2019-06-16 | Outpatient (CLI) | payer OTHER ==
--- NOTE | 2019-06-16 14:59 | RADIOLOGY REPORT (SQ) ---
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 9 images saved to PACS. LIMITATIONS: None. PROCEDURE: A 10 Irish Diego catheter was used to canalize the cutaneous fistula opening. Injection was then made using non ionic contrast. Digital spot images saved to PACS. FINDINGS: After canalization of the cutaneous tract, approximately 60 mL of non ionic contrast was i njected into the fistulous tract. Multiple spot images show communication of the fistulous tract with the right hip prosthesis with extension of contrast to the insertion into the proximal femur. There was no clear communication with the hip joint itself. 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 THERE IS NO CLEAR COMMUNICATION WIT H THE RIGHT HIP JOINT. COMMENT: Quality ID [id number]: Final reports for procedures using fluoroscopy that document radiation exp osure indices, or exposure time and number of fluorographic images (if radiation exposure indices are not available) TECHNICAL DOCUMENTATION: JOB ID: [id number] [employer]- All Rights Reserved Reading location - IP/workstation name: [email or web address]
== END ==
LOC: RAD 09:53
PROVIDERS: ATTEND Surgery
DX: L97.10 Non-pressure chronic ulcer of unspecified thigh (principal)
CPT/HCPCS: 76080; C1758